=== PATIENT | female | born 1960 | race Caucasian/White ===

== ENCOUNTER 2017-05-20 18:12 | Emergency (ER) | payer OTHER ==
[~2017-05-20 18:12] MED LIST: ACCL20 PO; ALBUAER2 INH; ASPI81TA28 PO; CLON1TAB3 PO; DOCU-105 PO; IPRA1AER2 INH; LSX40 PO; MIRT30TA3 PO; MONT1TAB3 PO; NTRGSL/4 UT; OMEP40CA41 PO; OXGN; OXY/15 PO; POLY335025 PO; POTA-331 PO; SYMIN160 INH
[2017-05-20] MEDS ORDERED: LORAZEPAM 1 MG TAB SL STA (18:32)
--- NOTE | 2017-05-20 18:36 | EMERGENCY ROOM VISIT NOTE ---
History Report prepared by Steven: Joel Meraz Under the Supervision of: Dr. Jd Norris M.D. First contact with patient: 18:21 Chief Complaint: MENTAL HEALTH EVALUATION Stated Complaint: DEPRESSION,ANXIETY,2ND SON YESTERDAY History of Present Illness The patient is a 57 year old female who presents to the Emergency Room for a mental health evaluation and worsening depression after losing her son yesterday. The patient's son yesterday after a traumatic fall and head injury from a rock climbing wall. This is the second son the patient has lost in the past 9 years. Her first son in a traumatic four-c[place]ez accident. She notes that she has a history of depression and mood disorders. She was on medication in the past, but has not taken anything in the past year. The patient denies any suicidal thoughts and states that "her daughter needs her." She denies any abdominal pain at this time. Source of History: patient Onset: yesterday Position: other (Mental Health ) Quality: other (Depression) Timing: worsening Review of Systems All systems have been listed, reviewed, and are negative other than those previously mentioned. Please see Additional Medical History Sheet. Past Medical & Surgical Medical Problems: (1) Asthma, Unspecified (2) Cholecystectomy (3) Fibromyalgia (4) Migraine Unspecified W/O Intractable Migraine (5) Osteoarthritis (6) Osteoporosis (7) stomach stapling for weight loss (8) Suicidal ideation (9) Urin Tract Infection Nos Surgical Problems: (1) S/P gastric bypass Family History Drug abuse Social History Smoking Status: Current Every Day Smoker Alcohol Use: none Marital Status: Current/Historical Medications Scheduled Aspirin (Aspirin Ec), 81 MG PO QAM Budesonide/Formoterol Fumarate (Symbicort 160/4.5 Inhaler), 1 PUFF INH BID Clonazepam (Klonopin), 1 MG PO QID Docusate Sodium (Dulcolax Stool Softener), 100 MG PO QAM Fentanyl (Fentanyl), 25 MCG TD Q72H Fentanyl (Fentanyl), 100 MCG TD Q72H Home O2 Therapy (Oxygen), 2 LITERS NA HS Mirtazapine (Remeron), 30 MG PO HS Montelukast Sodium (Singulair), 10 MG PO DAILY Omeprazole (Prilosec), 40 MG PO BID Polyethylene Glycol 3350 (Miralax), 17 GM PO DAILY Zafirlukast (Zafirlukast), 20 MG PO BID [Tylenol Migraine], 2 TAB PO UD Scheduled PRN Albuterol (Ventolin), 2 PUFFS INH QID PRN for SOB/Wheezing Furosemide (Furosemide), 40 MG PO DAILY PRN for Swelling Ipratropium-Albuterol (Combivent Respimat), 1 PUFF INH QID PRN for Shortness of Breath Lorazepam (Ativan), 0.5 MG PO Q6H PRN for depression Nitroglycerin (Nitrostat), 0.4 MG UT UD PRN for Chest Pain Oxycodone Hcl (Oxycodone Hcl), 15 MG PO Q6H PRN for Pain Potassium Chloride Microencaps (Klor-Con M10), 10 MEQ PO DAILY PRN for Take if lasix was taken. Allergies Coded Allergies: Codeine (Verified Allergy, Unknown, ., 05/20/17) Hydrocodone (Verified Allergy, Unknown, ., 05/20/17) Moxifloxacin (Verified Allergy, Unknown, Itching, 05/20/17) NSAIDs (Verified Allergy, Unknown, ., 05/20/17) Pregabalin (Verified Allergy, Unknown, Abdominal pain,nausea and vomiting. , 05/20/17) Physical Exam Vital Signs Date Time Temp Pulse Resp B/P (MAP) Pulse Ox O2 Delivery O2 Flow Rate FiO2 05/20/17 20:30 70 18 149/86 96 05/20/17 18:16 106 26 143/92 96 Room Air Physical Exam GENERAL: Patient awake, alert, despondent and tearful. SKIN: No erythema, pallor, cyanosis or rash HEENT: Normal head, pupils equal, reactive to light and accommodation. LUNGS: Clear to auscultation. No wheezes, no rales, no rhonchi. HEART: No murmurs. No gallops. No rubs ABDOMEN: Morbidly obese, No masses, no rebound, no hepatomegaly or splenomegaly. EXTREMITIES: No signs of trauma. NEUROLOGIC: Cranial nerves II-XII within normal limits. No gross motor sensory function deficits. PSYCH: Patient is despondent. She denies suicidal ideation. Medical Decision & Procedures Laboratory Results 05/20/17 18:45 05/20/17 18:45 Test 05/20/17 18:30 8/5/17 18:45 Urine Color YELLOW Urine Appearance CLEAR (CLEAR) Urine pH 8.5 (4.5-7.5) Urine Specific [place] 1.008 (1.000-1.030) Urine Protein NEG (NEG) Urine Glucose (UA) NEG (NEG) Urine Ketones NEG (NEG) Urine Occult Blood TRACE (NEG) Urine Nitrite NEG (NEG) Urine Bilirubin NEG (NEG) Urine Urobilinogen NEG (NEG) Urine Leukocyte Esterase TRACE (NEG) Urine WBC (Auto) 1-5 /hpf (0-5) Urine RBC (Auto) 0-4 /hpf (0-4) Urine Hyaline Casts (Auto) 1-5 /lpf (0-5) Urine Epithelial Cells (Auto) 10-20 /lpf (0-5) Urine Bacteria (Auto) NEG (NEG) Urine Opiates Screen NEG (NEG) Urine Methadone, Qualitative NEG (NEG) Urine Barbiturates NEG (NEG) Urine Phencyclidine (PCP) Level NEG (NEG) Ur Amphetamine/Methamphetamine NEG (NEG) MDMA (Ecstasy) Screen NEG (NEG) Urine Benzodiazepines Screen POS (NEG) Urine Cocaine Metabolite NEG (NEG) Urine Marijuana (THC) NEG (NEG) Red Blood Count 4.25 M/uL (4.2-5.4) Mean Corpuscular Volume 87.1 fL (80-100) Mean Corpuscular Hemoglobin 28.7 pg (25-34) Mean Corpuscular Hemoglobin Concent 33.0 g/dl (32-36) RDW Standard Deviation 46.4 fL (36.4-46.3) RDW Coefficient of Variation 14.7 % (11.5-14.5) Mean Platelet Volume 8.9 fL (7.4-10.4) Anion Gap 6.0 mmol/L (3-11) Estimated GFR () 110.4 Estimated GFR (Non- 95.2 BUN/Creatinine Ratio 8.3 (10-20) Calcium Level 8.9 mg/dl (8.5-10.1) Total Bilirubin 0.5 mg/dl (0.2-1) Aspartate Amino Transf (AST/SGOT) 19 U/L (15-37) Alanine Aminotransferase (ALT/SGPT) 17 U/L (12-78) Alkaline Phosphatase 95 U/L (45-117) Total Protein 7.2 gm/dl (6.4-8.2) Albumin 3.4 gm/dl (3.4-5.0) Globulin 3.8 gm/dl (2.5-4.0) Albumin/Globulin Ratio 0.9 (0.9-2) Thyroid Stimulating Hormone (TSH) 2.570 uIu/ml (0.300-4.500) Ethyl Alcohol mg/dL < 3.0 mg/dl (0-3) Laboratory results as stated above per my review. Medications Administered Medications (Trade) Dose Ordered Sig/Erin Route Start Time Stop Time Status Last Admin Dose Admin Lorazepam (Ativan Tab) 1 mg NOW STAT SL 05/20/17 18:32 05/20/17 18:33 DC 05/20/17 18:53 1 MG ED Course 1821: Past medical records reviewed. The patient was evaluated in room A8. A complete history and physical examination was performed. 1831: Ordered Lorazepam 1 mg SL. 1924: I reevaluated the patient at this time. She is feeling a little better at this time. The Psychiatric Liaison Nurse is still evaluating the patient. 1931: I discussed the case with the Psychiatric Liaison Nurse at this time. We will attempt to get her into an inpatient facility on Monday. 2011: I discussed the treatment plan with the patient at this time. She is in agreement to be placed in an inpatient facility on Monday. She will be discharged home. Medical Decision Differential Diagnosis includes; situational depression, metabolic disorder, endocrine disorder. The patient is here with depression. She is very upset over the loss of her son who yesterday. She denies other complaints. The patient is not suicidal. Multiple labs were obtained. She does not appear to have a metabolic or endocrine cause for her depression. She does not meet strict criteria for admission. We did arrange for her to get follow-up in 2 days by psychiatry. In the meantime she was given Ativan. I believe that the patient is safe to return home. She was also evaluated by the psych liaison nurse. Medication Reconcilliation Current Medication List: was personally reviewed by me Blood Pressure Screening Patient's blood pressure: Elevated blood pressure Blood pressure disposition: Referred to PCP Impression Primary Impression: Depression Scribe Attestation The scribe's documentation has been prepared under my direction and personally reviewed by me in its entirety. I confirm that the note above accurately reflects all work, treatment, procedures, and medical decision making performed by me. Departure Information Dispostion Home / Self-Care Prescriptions Lorazepam (ATIVAN) 0.5 Mg Tab 0.5 MG PO Q6H Y for depression, #20 TAB Prov: Jd Norris M.D. 05/20/17 Referrals No Doctor, Assigned (PCP) Forms HOME CARE DOCUMENTATION FORM, IMPORTANT VISIT INFORMATION Patient Instructions My [facility] Additional Instructions 1 Ativan every 6 hours as needed for depression. Continue all of your current medications as prescribed. Follow-up with mental health on Monday. Follow-up with your family physician within the next 10 days to check your blood pressure.
[2017-05-20] MEDS ORDERED: FNTTP25 TD (18:42)
[2017-05-20] MEDS ORDERED: DRGTP100 TD (18:42)
[2017-05-20] MEDS ORDERED: TYLENOL MIGRAINE PO (18:42)
[2017-05-20 19:03] LABS: MEAN CELL VOLUME 87.1 fL (80-100); MEAN CORPUSCULAR HEMOGLOBIN 28.7 pg (25-34); MEAN PLATELET VOLUME 8.9 fL (7.4-10.4); PLATELET COUNT 275 K/uL (130-400); RED BLOOD COUNT 4.25 M/uL (4.2-5.4); WHITE BLOOD COUNT 7.51 K/uL (4.8-10.8)
[2017-05-20 19:05] LABS: URINE APPEARANCE CLEAR (CLEAR); URINE BILIRUBIN NEG (NEG); URINE COLOR YELLOW; URINE NITRITE NEG (NEG); URINE PH 8.5 (4.5-7.5); URINE SPECIFIC GRAVITY 1.008 (1.000-1.030); UROBILINOGEN NEG (NEG)
[2017-05-20 19:06] LABS: MANUAL MICROSCOPIC REQUIRED? NO; REVIEW REQ? NO
[2017-05-20 19:23] LABS: ALT/SGPT 17 U/L (12-78); BLOOD UREA NITROGEN 6 mg/dl (7-18); BUN/CREATININE RATIO 8.3 (10-20); CALCIUM 8.9 mg/dl (8.5-10.1); CARBON DIOXIDE 30 mmol/L (21-32); CHLORIDE 104 mmol/L (98-107); CREATININE 0.71 mg/dl (0.60-1.20); GLUCOSE 85 mg/dl (70-99); POTASSIUM 3.6 mmol/L (3.5-5.1); SODIUM 140 mmol/L (136-145)
[2017-05-20 19:34] LABS: ALB/GLOB RATIO 0.9 (0.9-2); ALKALINE PHOSPHATASE 95 U/L (45-117); AST/SGOT 19 U/L (15-37)
[2017-05-20 19:35] LABS: BENZODIAZEPINE, URINE POS (NEG); COCAINE,URINE NEG (NEG); PHENCYCLIDINE, URINE NEG (NEG)
[2017-05-20] MEDS ORDERED: LORA-741 PO (20:14)
[2017-05-20 20:30] VITALS: BP 149/86; PULSE 70; O2SAT 96
[2017-05-24 12:20] LABS: HYDROXYETHYLFLURAZEPAM CONF NEGATIVE NG/ML (CUTOFF=50); HYDROXYMIDAZOLAM NEGATIVE NG/ML (CUTOFF=50); HYDROXYTRIAZOLAM CONF NEGATIVE NG/ML (CUTOFF=50); TEMAZEPAM CONF NEGATIVE NG/ML (CUTOFF=50)
== END 2017-05-20 20:31 | disposition home or self-care (01) ==
LOC: C.EDB 18:12 → C.EDA 20:31
DX: F32.9 Major depressive disorder, single episode, unspecified (principal); J45.909 Unspecified asthma, uncomplicated; M81.0 Age-related osteoporosis without current pathological fracture; M19.90 Unspecified osteoarthritis, unspecified site; F17.200 Nicotine dependence, unspecified, uncomplicated; Z87.440 Personal history of urinary (tract) infections; Z90.49 Acquired absence of other specified parts of digestive tract; Z98.84 Bariatric surgery status; Z81.3 Family history of other psychoactive substance abuse and dependence; Z79.82 Long term (current) use of aspirin